=== PATIENT | female | born 1970 | race Caucasian/White ===

== ENCOUNTER → 2017-12-19 | Emergency (ER) | payer MEDICARE, MEDICAID ==
[~2017-12-19] VITALS: Ht 160 cm; Wt 82.0 kg
[~2017-12-19] MED LIST: ACYC-202 PO; ALB0.5UD IH; BUDE10.2 INH; CARB200T8 PO; CHOL400T32 PO; DICY10CA88 PO; DOCU-20 PO; DULO60CA64 PO; EST1T PO; FLUT16SP9 INH; HYDR-3972 PO; IPRA3AMP31 IH; LISI10TA4 PO; LORA10TA65 PO; LORazepam 2 mg/ml vial IV ONE; MELA1TAB21 PO; METF500T PO; NICO-631 TD; OMEG1CAP2 PO; PAT0.1OS EACHEYE; PRAZ1CAP2 PO; PRED20TA PO; PREG225C PO; SUMA25TA35 PO; TEMA30CA5 PO; TIZA4CAP6 PO; VITA1TAB20 PO; VITC500T PO; [UNRECOGNIZED DRUG - CODE] PO; diphenhydrAMINE 50 mg/ml inj IV ONE; methylPREDNISolone SOD SUCC 1000 MG in NORMAL SALINE 100ml IV ONE; methylPREDNISolone sod succ 125mg/2ml vial IV ONE; morphine 4 MG/ML inj SYRINge IV ONE; normal saline 1000ML IV soln IVB ONE; ondansetron/PF 4mg/2ml inj IV ONE
[2017-12-19 11:31] LABS: BASOPHILS % (AUTO) 0.5 % (0-1); EOSINOPHILS # (AUTO) 0.2 X10'3 (0-0.9); EOSINOPHILS % (AUTO) 2.6 % (0-6); HEMATOCRIT 39.2 % (35.0-45.0); HEMOGLOBIN 13.1 g/dl (12.0-16.0); MEAN CORPUSCULAR HEMOGLOBIN 29.6 PG (27.0-31.0); MEAN CORPUSCULAR HGB CONC 33.5 % (33.0-36.5); MEAN CORPUSCULAR VOLUME 88.3 FL (78-98); MEAN PLATELET VOLUME 8.1 FL (7.4-10.4); MONOCYTES # (AUTO) 0.8 X10'3 (0-0.9); MONOCYTES % (AUTO) 8.9 % (2-12); NEUTROPHILS # (AUTO) 4.5 X10'3 (1.8-7.7); PLATELET COUNT 364 X10'3 (140-440); RED BLOOD COUNT 4.43 X10'6 (4.20-5.60); RED CELL DISTRIBUTION WIDTH 14.3 % (11.5-14.5); WHITE BLOOD COUNT 8.5 X10'3 (4.5-11.0)
[2017-12-19 11:42] LABS: INR 0.9 INR; PARTIAL THROMBOPLASTIN TIME 25 SECONDS (22-32); PROTHROMBIN TIME 9.5 SECONDS (9.0-12.0)
[2017-12-19 11:46] LABS: ALANINE AMINOTRANSFERASE 42 U/L (12-78); ALBUMIN/GLOBULIN RATIO 0.9 (1.1-1.5); ALKALINE PHOSPHATASE 70 IU/L (46-116); ANION GAP 12 (8-16); ASPARTATE AMINO TRANSFERASE 48 U/L (10-37); BILIRUBIN,TOTAL 0.1 MG/DL (0.1-1.0); BLOOD UREA NITROGEN 11 MG/DL (7-18); BUN/CREATININE RATIO 13.4 (6.6-38.0); CALCIUM 8.2 MG/DL (8.5-10.1); CHLORIDE 103 MMOL/L (99-107); CREATININE 0.82 MG/DL (0.40-0.90); GLUCOSE 127 MG/DL (70-104); POTASSIUM 3.9 MMOL/L (3.5-5.1); SODIUM 139 MMOL/L (135-145); TOTAL PROTEIN 6.4 G/DL (6.4-8.2); eGFR 74 ML/MIN
[2017-12-19 11:49] LABS: TROPONIN I < 0.04 NG/ML (0.0-0.05)
[2017-12-19 12:43] VITALS: BP 157/95
== END | disposition home or self-care (01) ==
LOC: ER 11:11
DX: I63.9 Cerebral infarction, unspecified (principal); I16.0 Hypertensive urgency; I11.9 Hypertensive heart disease without heart failure; J44.9 Chronic obstructive pulmonary disease, unspecified; E78.00 Pure hypercholesterolemia, unspecified; E11.42 Type 2 diabetes mellitus with diabetic polyneuropathy; G89.29 Other chronic pain; Z88.5 Allergy status to narcotic agent; Z88.2 Allergy status to sulfonamides; Z88.1 Allergy status to other antibiotic agents; Z88.8 Allergy status to other drugs, medicaments and biological substances; Z79.84 Long term (current) use of oral hypoglycemic drugs; Z79.899 Other long term (current) drug therapy; Z60.2 Problems related to living alone
CPT/HCPCS: 36415; 70450; 70544; 70551; 71045; 72125; 80053; 84484; 85025; 85610; 85730; 93005; 96361; 96374; 96375; 99291; 99292; J1200; J2060; J2270; J2405; J2930; J7030

== ENCOUNTER 2019-05-02 10:16 | Observation (INO) | payer MEDICARE, MEDICAID ==
[~2019-05-02] VITALS: Ht 160 cm; Wt 75.0 kg
[~2019-05-02 10:16] MED LIST changes: -DULO60CA64 PO; +DULO60CA65 PO; -LORazepam 2 mg/ml vial IV ONE; -diphenhydrAMINE 50 mg/ml inj IV ONE; -methylPREDNISolone SOD SUCC 1000 MG in NORMAL SALINE 100ml IV ONE; -methylPREDNISolone sod succ 125mg/2ml vial IV ONE; -morphine 4 MG/ML inj SYRINge IV ONE; -normal saline 1000ML IV soln IVB ONE; -ondansetron/PF 4mg/2ml inj IV ONE
[2019-05-02] MEDS ORDERED: aspirin 325mg tablet PO ONE (10:35)
[2019-05-02] MEDS ORDERED: morphine 4 MG/ML inj SYRINge IV ONE (10:50)
[2019-05-02] MEDS ORDERED: ondansetron/PF 4mg/2ml inj IV ONE (10:50)
[2019-05-02 11:03] LABS: BASOPHILS # (AUTO) 0.1 X10'3 (0-0.2); BASOPHILS % (AUTO) 0.8 % (0-1); EOSINOPHILS # (AUTO) 0.8 X10'3 (0-0.9); EOSINOPHILS % (AUTO) 6.6 % (0-6); HEMATOCRIT 39.9 % (35.0-45.0); HEMOGLOBIN 13.4 g/dl (12.0-16.0); LYMPHOCYTES # (AUTO) 4.5 X10'3 (1.1-4.8); LYMPHOCYTES % (AUTO) 36.8 % (21-51); MEAN CORPUSCULAR HEMOGLOBIN 27.8 PG (27.0-31.0); MEAN CORPUSCULAR HGB CONC 33.5 g/dL (33.0-36.5); MEAN CORPUSCULAR VOLUME 83.1 FL (78-98); MEAN PLATELET VOLUME 7.7 FL (7.4-10.4); MONOCYTES # (AUTO) 0.8 X10'3 (0-0.9); MONOCYTES % (AUTO) 6.2 % (2-12); NEUTROPHILS % (AUTO) 49.6 % (42-75); PLATELET COUNT 427 X10'3 (140-440); RED BLOOD COUNT 4.81 X10'6 (4.20-5.60); WHITE BLOOD COUNT 12.2 X10'3 (4.5-11.0)
[2019-05-02 11:17] LABS: ALANINE AMINOTRANSFERASE 42 U/L (12-78); ALBUMIN 3.8 G/DL (3.4-5.0); ALKALINE PHOSPHATASE 99 IU/L (46-116); ANION GAP 10 (8-16); ASPARTATE AMINO TRANSFERASE 26 U/L (10-37); BILIRUBIN,TOTAL 0.3 MG/DL (0.1-1.0); BLOOD UREA NITROGEN 9 MG/DL (7-18); BUN/CREATININE RATIO 12.9 (6.6-38.0); CALCIUM 9.2 MG/DL (8.5-10.1); CHLORIDE 102 MMOL/L (99-107); GLUCOSE 96 MG/DL (70-104); POTASSIUM 3.7 MMOL/L (3.5-5.1); SODIUM 140 MMOL/L (135-145); TOTAL CARBON DIOXIDE 28.3 MMOL/L (24-32); TOTAL PROTEIN 7.6 G/DL (6.4-8.2); eGFR 89 ML/MIN
[2019-05-02] MEDS ORDERED: acetaminophen 325mg tablet PO PRN ×2 (11:50)
[2019-05-02] MEDS ORDERED: morphine 2 MG/ML inj. syringe IV PRN ×2 (11:50)
[2019-05-02] MEDS ORDERED: mag hydrox/Alum hydrox/simeth 30ml oral suspension PO PRN (11:50)
[2019-05-02] MEDS ORDERED: magnesium hydroxide 30ml (MOM) UD suspension PO PRN (11:50)
[2019-05-02] MEDS ORDERED: HYDROcodone/acetaminophen 5mg/325mg tablet PO PRN (11:50)
[2019-05-02] MEDS ORDERED: ondansetron/PF 4mg/2ml inj IV PRN (11:50)
[2019-05-02] MEDS ORDERED: nitroGLYCERIN 0.4mg SUBLingual tab SL PRN ×2 (11:50→13:45)
[2019-05-02] MEDS ORDERED: pneumococcal 23-VAL P-sac vacc 25 mcg/0.5ml vial IMVAC ONE (12:50)
[2019-05-02] MEDS ORDERED: CHLO25TA10 PO (13:04)
[2019-05-02] MEDS ORDERED: OMEP40CA13 PO (13:11)
[2019-05-02] MEDS ORDERED: ATOR40TA71 PO (13:11)
[2019-05-02] MEDS ORDERED: CARB100T7 PO (13:11)
[2019-05-02] MEDS ORDERED: ALBU18HF2 PO (13:11)
[2019-05-02] MEDS ORDERED: ASPI-1265 PO (13:15)
[2019-05-02] MEDS ORDERED: DESV100T16 PO (13:15)
[2019-05-02] MEDS ORDERED: MORP-92 PO (13:15)
[2019-05-02] MEDS ORDERED: tizanidine 4mg tablet PO PRN (13:25)
[2019-05-02] MEDS ORDERED: dicyclomine 10 MG capsule PO PRN (13:25)
[2019-05-02] MEDS ORDERED: metoprolol tartrate 1mg/ml inj IV PRN (13:45)
[2019-05-02] MEDS ORDERED: aminophylline 250mg/10ml inj. IV PRN (13:45)
[2019-05-02] MEDS ORDERED: nicotine 21mg patch - 24 hr TD ONE (13:45)
[2019-05-02] MEDS ORDERED: regadenoson 0.4mg/5ml syringe IV ONE (13:45)
[2019-05-02 13:47] VITALS: BP 141/63
[2019-05-02] MEDS ORDERED: albuterol 2.5 MG/3 ML nebule NEB PRN (14:20)
[2019-05-02 14:40] LABS: HEMOGLOBIN A1C 6.5 % (4.5-6.2)
--- NOTE | 2019-05-02 15:49 | NUR ---
PAGER ID: [phone] MESSAGE: [id number] Carla Young is having anxiety. Can she get something for that? FREDERICK Hawkins Ext [phone]
[2019-05-02] MEDS ORDERED: clonazePAM 0.5mg tablet PO PRN (16:00)
--- NOTE | 2019-05-02 17:43 | NUR ---
PAGER ID: [phone] MESSAGE: [id number] Carla Young: Do you want her on the DM protocol? FREDERICK Hawkins Ext [phone]
[2019-05-02 18:00] VITALS: BP 129/67
--- NOTE | 2019-05-02 18:29 | NUR ---
Problems reprioritized. Patient report given, questions answered & plan of care reviewed with FREDERICK George.
--- NOTE | 2019-05-02 18:30 | NUR ---
Patient in room [facility]. I have received report from FREDERICK Hawkins and had the opportunity to ask questions and assume patient care.
[2019-05-02] MEDS: metFORMIN 500mg tablet PO SCH (19:31)
[2019-05-02] MEDS: docusate sod 100mg capsule PO SCH (19:31)
[2019-05-02] MEDS: lisinopril 10 MG tablet PO SCH (19:32)
[2019-05-02] MEDS: pregabalin 75mg capsule PO SCH (19:32)
[2019-05-02] MEDS: HYDROcodone/acetaminophen 10/325mg tab PO PRN (19:40)
[2019-05-02] MEDS ORDERED: prazosin 1mg capsule PO SCH (21:00)
[2019-05-02] MEDS ORDERED: carBAMazepine 100mg chewable tablet PO SCH (21:00)
[2019-05-02] MEDS: venlafaxine 25mg tablet PO SCH (21:00)
[2019-05-02] MEDS ORDERED: atorvastatin 20mg tablet PO SCH (21:00)
[2019-05-02] MEDS ORDERED: estradiol 1mg tablet PO SCH (21:00)
[2019-05-02] MEDS ORDERED: pyridoxine 50mg tablet PO SCH (21:00)
[2019-05-02] MEDS ORDERED: PYRIDOXINE HCL PO SCH (21:00)
[2019-05-02] MEDS ORDERED: MELATONIN PO SCH (21:00)
[2019-05-02] MEDS ORDERED: Melatonin 3mg tablet PO SCH (21:00)
[2019-05-02] MEDS: albuterol 2.5 MG/3 ML nebule NEB SCH (21:15)
[2019-05-02] MEDS: budesonide 0.5mg/2ml UD nebule IH SCH (21:15)
[2019-05-03] VITALS (13 sets, daily range): BP systolic 107–124; BP diastolic 54–68
[2019-05-03] MEDS: albuterol 2.5 MG/3 ML nebule NEB SCH ×3 (03:00→14:01)
[2019-05-03] MEDS: HYDROcodone/acetaminophen 10/325mg tab PO PRN ×2 (04:27→14:24)
[2019-05-03 05:25] LABS: ALBUMIN 3.1 G/DL (3.4-5.0); ANION GAP 9 (8-16); BLOOD UREA NITROGEN 19 MG/DL (7-18); CALCIUM 8.9 MG/DL (8.5-10.1); CHLORIDE 100 MMOL/L (99-107); CREATININE 0.76 MG/DL (0.40-0.90); GLUCOSE 107 MG/DL (70-104); POTASSIUM 3.4 MMOL/L (3.5-5.1); SODIUM 140 MMOL/L (135-145); TOTAL CARBON DIOXIDE 31.2 MMOL/L (24-32); eGFR 81 ML/MIN
[2019-05-03 05:26] LABS: D-DIMER 0.29 MG/L FEU (0-0.50)
[2019-05-03 05:34] LABS: BASOPHILS # (AUTO) 0.1 X10'3 (0-0.2); BASOPHILS % (AUTO) 0.8 % (0-1); EOSINOPHILS # (AUTO) 0.6 X10'3 (0-0.9); EOSINOPHILS % (AUTO) 4.4 % (0-6); HEMATOCRIT 36.5 % (35.0-45.0); HEMOGLOBIN 12.3 g/dl (12.0-16.0); LYMPHOCYTES # (AUTO) 4.9 X10'3 (1.1-4.8); LYMPHOCYTES % (AUTO) 33.9 % (21-51); MEAN CORPUSCULAR HEMOGLOBIN 27.8 PG (27.0-31.0); MEAN CORPUSCULAR HGB CONC 33.7 g/dL (33.0-36.5); MEAN CORPUSCULAR VOLUME 82.6 FL (78-98); MEAN PLATELET VOLUME 8.1 FL (7.4-10.4); MONOCYTES # (AUTO) 0.7 X10'3 (0-0.9); MONOCYTES % (AUTO) 4.9 % (2-12); PLATELET COUNT 425 X10'3 (140-440); RED BLOOD COUNT 4.41 X10'6 (4.20-5.60); RED CELL DISTRIBUTION WIDTH 16.5 % (11.5-14.5); WHITE BLOOD COUNT 14.3 X10'3 (4.5-11.0)
--- NOTE | 2019-05-03 06:41 | NUR ---
Problems reprioritized. Patient report given, questions answered & plan of care reviewed with FREDERICK Castelan.
--- NOTE | 2019-05-03 06:42 | NUR ---
Patient in room [facility]. I have received report from FREDERICK George and had the opportunity to ask questions and assume patient care.
[2019-05-03] MEDS ORDERED: pantoprazole 40mg Tablet.DR PO SCH (07:30)
[2019-05-03] MEDS ORDERED: enoxaparin 40mg/0.4ml syringe SUBCUT SCH (08:00)
[2019-05-03] MEDS ORDERED: chlorthalidone 25mg tablet PO SCH (08:00)
[2019-05-03] MEDS ORDERED: ascorbic acid 500mg tablet PO SCH (08:00)
[2019-05-03] MEDS ORDERED: morphine ER 15mg tablet PO SCH (08:00)
[2019-05-03] MEDS ORDERED: nicotine 14mg patch - 24hr TD SCH (08:00)
[2019-05-03] MEDS ORDERED: aspirin 81mg tab.chew PO SCH (08:00)
[2019-05-03] MEDS ORDERED: loratadine 10mg tablet PO SCH (08:00)
[2019-05-03] MEDS ORDERED: aspirin 81mg tablet.DR PO SCH (08:00)
[2019-05-03] MEDS ORDERED: carBAMazepine 100mg chewable tablet PO SCH (08:00)
[2019-05-03] MEDS: venlafaxine 25mg tablet PO SCH ×2 (08:00→13:53)
[2019-05-03] MEDS ORDERED: cholecalciferol (vitamin D) 400 unit tablet PO SCH (08:00)
[2019-05-03] MEDS ORDERED: vitamin B comp w/Vit. C tab 1 TAB TABLET PO SCH (08:00)
[2019-05-03] MEDS ORDERED: non-formulary drug (Omega-3 Fatty Acids/Fish Oil (Fish Oil 1,000 mg Capsule) 1 CAP) PO SCH (08:00)
[2019-05-03] MEDS: budesonide 0.5mg/2ml UD nebule IH SCH (08:30)
[2019-05-03] MEDS: pregabalin 75mg capsule PO SCH (08:30)
[2019-05-03] MEDS: metFORMIN 500mg tablet PO SCH (08:30)
[2019-05-03] MEDS: docusate sod 100mg capsule PO SCH (08:35)
--- NOTE | 2019-05-03 11:00 | NUR ---
Notified Dr. Mejia of pt's K 3.4 and asked for replacement protocol. Per MD, no replacement orders given-will continue to monitor.
[2019-05-03] MEDS: lisinopril 10 MG tablet PO SCH (12:16)
--- NOTE | 2019-05-06 09:45 | NUR ---
Case Management DC follow up: LM</VM asking pt to rtn call if any questions/concerned, post DC status; if emergent s/s cp, SOB etc to call emergency services
== END 2019-05-03 15:34 | disposition home or self-care (01) ==
LOC: ER 10:17 → ED HOLD 11:46 → SUR 3N 13:54
PROVIDERS: ADMIT Internal Medicine; ATTEND Internal Medicine
DX: R07.89 Other chest pain (principal); J44.9 Chronic obstructive pulmonary disease, unspecified; E78.5 Hyperlipidemia, unspecified; G89.29 Other chronic pain; F32.9 Major depressive disorder, single episode, unspecified; I10 Essential (primary) hypertension; E11.40 Type 2 diabetes mellitus with diabetic neuropathy, unspecified; E78.00 Pure hypercholesterolemia, unspecified; M54.9 Dorsalgia, unspecified; F41.9 Anxiety disorder, unspecified; F43.10 Post-traumatic stress disorder, unspecified; F17.210 Nicotine dependence, cigarettes, uncomplicated; Z23 Encounter for immunization; Z87.442 Personal history of urinary calculi; Z79.82 Long term (current) use of aspirin; Z79.899 Other long term (current) drug therapy; Z79.84 Long term (current) use of oral hypoglycemic drugs; Z88.5 Allergy status to narcotic agent; Z88.2 Allergy status to sulfonamides; Z91.048 Other nonmedicinal substance allergy status; Z88.1 Allergy status to other antibiotic agents; Z88.8 Allergy status to other drugs, medicaments and biological substances
CPT/HCPCS: 36415; 71045; 78452; 80048; 80053; 82948; 83036; 83880; 84484; 85025; 85379; 87081; 90732; 93005; 93017; 94640; 94760; 96372; 96374; 96375; 99284; A9500; G0009; G0378; J2270; J2405; J2785; J1650; J7626

== ENCOUNTER 2021-03-08 12:27 | Emergency (ER) | payer MEDICARE, MEDICAID ==
[~2021-03-08] VITALS: Ht 160 cm; Wt 77.3 kg
[~2021-03-08 12:27] MED LIST changes: -ACYC-202 PO; -ALB0.5UD IH; +ALBU18HF2 PO; +ASPI-1265 PO; +ATOR40TA71 PO; +CARB100T7 PO; +CHLO25TA10 PO; +DESV100T16 PO; -DOCU-20 PO; +DOCU-348 PO; -DULO60CA65 PO; -FLUT16SP9 INH; -IPRA3AMP31 IH; +LISI10TA27 PO; -LISI10TA4 PO; +MORP-92 PO; +OMEP40CA21 PO; -PAT0.1OS EACHEYE; -PRED20TA PO; -SUMA25TA35 PO; -TEMA30CA5 PO; -[UNRECOGNIZED DRUG - CODE] PO
[2021-03-08 12:35] VITALS: BP 125/71
[2021-03-08 13:03] LABS: BASOPHILS # (AUTO) 0.1 X10'3 (0-0.2); BASOPHILS % (AUTO) 0.8 % (0-1); EOSINOPHILS # (AUTO) 0.1 X10'3 (0-0.9); EOSINOPHILS % (AUTO) 1.1 % (0-6); HEMATOCRIT 41.2 % (35.0-45.0); HEMOGLOBIN 14.3 g/dl (12.0-16.0); LYMPHOCYTES # (AUTO) 3.1 X10'3 (1.1-4.8); LYMPHOCYTES % (AUTO) 25.7 % (21-51); MEAN CORPUSCULAR HEMOGLOBIN 31.1 PG (27.0-31.0); MEAN CORPUSCULAR HGB CONC 34.6 g/dL (33.0-36.5); MEAN CORPUSCULAR VOLUME 90.1 FL (78-98); MEAN PLATELET VOLUME 7.9 FL (7.4-10.4); MONOCYTES # (AUTO) 0.9 X10'3 (0-0.9); MONOCYTES % (AUTO) 7.4 % (2-12); NEUTROPHILS # (AUTO) 7.7 X10'3 (1.8-7.7); PLATELET COUNT 398 X10'3 (140-440); RED BLOOD COUNT 4.58 X10'6 (4.20-5.60); RED CELL DISTRIBUTION WIDTH 14.2 % (11.5-14.5); WHITE BLOOD COUNT 11.9 X10'3 (4.5-11.0)
[2021-03-08 13:20] LABS: ALANINE AMINOTRANSFERASE 48 U/L (12-78); ALBUMIN 3.7 G/DL (3.4-5.0); ALBUMIN/GLOBULIN RATIO 0.9 (1.1-1.5); ALKALINE PHOSPHATASE 115 IU/L (46-116); ANION GAP 11 (8-16); ASPARTATE AMINO TRANSFERASE 27 U/L (10-37); BILIRUBIN,TOTAL 0.3 MG/DL (0.1-1.0); BLOOD UREA NITROGEN 10 MG/DL (7-18); CALCIUM 9.1 MG/DL (8.5-10.1); CHLORIDE 102 MMOL/L (99-107); CREATININE 0.77 MG/DL (0.40-0.90); GLUCOSE 120 MG/DL (70-104); LIPASE 68 U/L (73-393); POTASSIUM 3.3 MMOL/L (3.5-5.1); SODIUM 141 MMOL/L (135-145); TOTAL CARBON DIOXIDE 28.4 MMOL/L (24-32); TOTAL PROTEIN 7.6 G/DL (6.4-8.2); eGFR 79 ML/MIN
[2021-03-08 13:22] LABS: CLARITY,URINE CLOUDY (Clear); COLOR,URINE YELLOW (Yellow); GLUCOSE, URINE NEGATIVE (Neg); KETONES,URINE NEGATIVE (Neg); LEUKOCYTE ESTERASE ,URINE TRACE (Neg); NITRITES, URINE NEGATIVE (Neg); OCCULT BLOOD,URINE NEGATIVE (Neg); PROTEIN,URINE NEGATIVE (Neg); UA COLLECTION TYPE CLN CATCH MIDSTREAM; UROBILINOGEN,URINE 0.2 E.U/dL (0.2-1.0)
[2021-03-08 13:30] LABS: BACTERIA,URINE 2+ /HPF (Neg); SQUAMOUS EPITHELIAL CELL,UR MANY /LPF (FEW)
[2021-03-08 13:31] LABS: RBC,URINE 0-2 /HPF (0-2); WBC CLUMPS,URINE MANY /HPF (NEGATIVE); WBC,URINE 20-30 /HPF (0-4)
[2021-03-08] MEDS ORDERED: CEFP100T7 PO (15:49)
[2021-03-08] MEDS: ketorolac tromethamine 15mg/ml inj. IM ONE (16:12)
[2021-03-08] MEDS ORDERED: PHEN95TA27 PO (16:21)
== END 2021-03-08 16:21 | disposition home or self-care (01) ==
LOC: ER 12:31
DX: N20.0 Calculus of kidney (principal); N12 Tubulo-interstitial nephritis, not specified as acute or chronic; R30.9 Painful micturition, unspecified; R42 Dizziness and giddiness; E11.42 Type 2 diabetes mellitus with diabetic polyneuropathy; E78.00 Pure hypercholesterolemia, unspecified; I10 Essential (primary) hypertension; J44.9 Chronic obstructive pulmonary disease, unspecified; G89.29 Other chronic pain; F41.9 Anxiety disorder, unspecified; F32.9 Major depressive disorder, single episode, unspecified; Z87.01 Personal history of pneumonia (recurrent); Z87.442 Personal history of urinary calculi; Z90.89 Acquired absence of other organs; Z90.710 Acquired absence of both cervix and uterus; Z98.51 Tubal ligation status; Z60.2 Problems related to living alone; Z88.5 Allergy status to narcotic agent; Z88.1 Allergy status to other antibiotic agents; Z88.8 Allergy status to other drugs, medicaments and biological substances; Z79.82 Long term (current) use of aspirin; Z79.2 Long term (current) use of antibiotics; Z79.899 Other long term (current) drug therapy
CPT/HCPCS: 36415; 74176; 80053; 81001; 83690; 85025; 96372; 99284; J1885

== ENCOUNTER 2021-03-21 15:05 | Emergency (ER) | payer MEDICARE, MEDICAID ==
[~2021-03-21] VITALS: Ht 160 cm; Wt 77.3 kg
[~2021-03-21 15:05] MED LIST changes: +CEFP100T7 PO; +PHEN95TA27 PO
[2021-03-21 16:08] LABS: BASOPHILS # (AUTO) 0.1 X10'3 (0-0.2); BASOPHILS % (AUTO) 0.7 % (0-1); EOSINOPHILS # (AUTO) 0.1 X10'3 (0-0.9); EOSINOPHILS % (AUTO) 1.2 % (0-6); HEMATOCRIT 44.5 % (35.0-45.0); LYMPHOCYTES # (AUTO) 3.3 X10'3 (1.1-4.8); MEAN CORPUSCULAR HGB CONC 33.8 g/dL (33.0-36.5); MEAN CORPUSCULAR VOLUME 91.7 FL (78-98); MEAN PLATELET VOLUME 8.2 FL (7.4-10.4); MONOCYTES # (AUTO) 0.7 X10'3 (0-0.9); MONOCYTES % (AUTO) 7.5 % (2-12); NEUTROPHILS # (AUTO) 5.8 X10'3 (1.8-7.7); NEUTROPHILS % (AUTO) 57.6 % (42-75); PLATELET COUNT 395 X10'3 (140-440); RED BLOOD COUNT 4.85 X10'6 (4.20-5.60); RED CELL DISTRIBUTION WIDTH 14.5 % (11.5-14.5); WHITE BLOOD COUNT 10.1 X10'3 (4.5-11.0)
[2021-03-21 16:13] LABS: ALANINE AMINOTRANSFERASE 61 U/L (12-78); ALBUMIN 3.5 G/DL (3.4-5.0); ALBUMIN/GLOBULIN RATIO 0.8 (1.1-1.5); ALKALINE PHOSPHATASE 128 IU/L (46-116); ANION GAP 11 (8-16); ASPARTATE AMINO TRANSFERASE 39 U/L (10-37); BILIRUBIN,TOTAL 0.2 MG/DL (0.1-1.0); BLOOD UREA NITROGEN 11 MG/DL (7-18); BUN/CREATININE RATIO 15.7 (6.6-38.0); CALCIUM 9.2 MG/DL (8.5-10.1); CHLORIDE 101 MMOL/L (99-107); GLUCOSE 98 MG/DL (70-104); POTASSIUM 3.3 MMOL/L (3.5-5.1); SODIUM 142 MMOL/L (135-145); TOTAL CARBON DIOXIDE 29.6 MMOL/L (24-32); TOTAL PROTEIN 7.7 G/DL (6.4-8.2); eGFR 88 ML/MIN
[2021-03-21 16:58] LABS: CLARITY,URINE CLOUDY (Clear); COLOR,URINE ORANGE (Yellow)
[2021-03-21 16:59] LABS: UA COLLECTION TYPE CLN CATCH MIDSTREAM
[2021-03-21 17:04] LABS: GLUCOSE, URINE 100 mg/dl (Neg)
[2021-03-21 17:05] LABS: LEUKOCYTE ESTERASE ,URINE TRACE (Neg); OCCULT BLOOD,URINE NEGATIVE (Neg); PH,URINE 6.5 (4.8-8.0)
[2021-03-21 17:07] LABS: MUCUS STRANDS FEW /LPF (Neg); SQUAMOUS EPITHELIAL CELL,UR MANY /LPF (FEW)
[2021-03-21 17:08] LABS: RBC,URINE 0-2 /HPF (0-2); WBC,URINE TNTC /HPF (0-4)
[2021-03-21 17:09] LABS: BACTERIA,URINE 3+ /HPF (Neg)
[2021-03-21] MEDS ORDERED: NITR100C6 PO (17:28)
[2021-03-21] MEDS ORDERED: PHEN-824 PO (17:28)
[2021-03-21] MEDS ORDERED: CefTRIAXone 1000mg IM Kit (w/lidocaine diluent) IM ONE (17:30)
[2021-03-21 18:02] LABS: CLARITY,URINE CLOUDY (Clear); GLUCOSE, URINE NEGATIVE (Neg); LEUKOCYTE ESTERASE ,URINE TRACE (Neg); OCCULT BLOOD,URINE NEGATIVE (Neg)
[2021-03-21] MEDS ORDERED: potassium Cl 20 mEq SR tablet PO STA (18:04)
[2021-03-21] MEDS ORDERED: normal saline 1000ml 1,000 ML IV ONE (18:10)
[2021-03-21 18:17] LABS: COLOR,URINE ORANGE (Yellow); UA COLLECTION TYPE CLN CATCH MIDSTREAM
[2021-03-21 18:19] VITALS: BP 159/82
[2021-03-21 18:19] LABS: BACTERIA,URINE 2+ /HPF (Neg); RBC,URINE 0-2 /HPF (0-2); WBC,URINE 50-100 /HPF (0-4)
[2021-03-21 18:20] LABS: MUCUS STRANDS FEW /LPF (Neg); SQUAMOUS EPITHELIAL CELL,UR MODERATE /LPF (FEW)
--- NOTE | 2021-03-21 19:05 | NUR ---
Pt given and understands d/c instructions. Ambulatory with a steady gait. IV d/c'd, catheter was intact.
== END 2021-03-21 19:05 | disposition home or self-care (01) ==
LOC: ER 15:06
DX: N39.0 Urinary tract infection, site not specified (principal); Z20.822 Contact with and (suspected) exposure to COVID-19; R09.81 Nasal congestion; F17.200 Nicotine dependence, unspecified, uncomplicated
CPT/HCPCS: 36415; 71045; 80053; 81001; 83880; 84484; 85025; 87635; 93005; 96360; 96372; 99285; C9803; J0696; J7030

== ENCOUNTER 2021-12-26 09:45 | Outpatient (CLI) | payer OTHER, MEDICAID ==
[~2021-12-26 09:45] MED LIST changes: +NITR100C6 PO; +PHEN-824 PO
== END 2021-12-26 23:59 | disposition home or self-care (01) ==
LOC: RAD 09:45
PROVIDERS: ATTEND Internal Medicine
DX: R16.0 Hepatomegaly, not elsewhere classified (principal); J98.11 Atelectasis; K44.9 Diaphragmatic hernia without obstruction or gangrene; N20.0 Calculus of kidney; N28.1 Cyst of kidney, acquired; M47.817 Spondylosis without myelopathy or radiculopathy, lumbosacral region; Z90.710 Acquired absence of both cervix and uterus; Z90.49 Acquired absence of other specified parts of digestive tract
CPT/HCPCS: 74176